=== PATIENT | female | born 1970 | race Caucasian/White ===

== ENCOUNTER 2017-01-15 12:26 | Observation (INO) | payer OTHER ==
[2017-01-15 14:28] LABS: APPEARANCE CLEAR (CLEAR); BILIRUBIN NEGATIVE (NEGATIVE); COLOR STRAW (YELLOW); GLUCOSE NEGATIVE (NEGATIVE); KETONE NEGATIVE (NEGATIVE); NITRITE NEGATIVE (NEGATIVE); PROTEIN NEGATIVE (NEGATIVE); SPECIFIC GRAVITY 1.005 (1.005-1.020); UROBILINOGEN NORMAL (NORMAL)
[2017-01-15 14:39] LABS: BASOPHILS 0.1 % (0-2); HEMATOCRIT 45.5 % (36.0-48.0); HEMOGLOBIN 15.9 g/dL (12-16); IMMATURE GRANULOCYTES 0.1 % (0-5); LYMPHOCYTES 37.2 % (15-50); MCH 31.4 pg (26.0-34.0); MCHC 34.9 g/dL (31.0-37.0); MCV 89.7 fL (80.0-100.0); MEAN PLATELET VOLUME 8.9 fL (7.4-10.4); MONOCYTES 7.3 % (2-11); NEUTROPHILS 52.3 % (40-80); PLATELET COUNT 249 10x3/uL (130-400); RBC 5.07 10x6/uL (4.00-5.40); RDW 13.4 % (11.5-14.5); WBC 9.7 10x3/uL (4.8-10.8)
[2017-01-15 14:53] LABS: ALBUMIN 3.7 g/dL (3.4-5.0); ALKALINE PHOSPHATASE 84 U/L (46-116); ALT (SGPT) 30 U/L (10-68); CALC OSMOLALITY 276 mosm/kg (275-300); CARBON DIOXIDE 27.8 mmol/L (21.0-32.0); CHLORIDE - SERUM 103 mmol/L (98-107); CREATININE - SERUM 0.7 mg/dL (0.6-1.3); GLUCOSE 74 mg/dL (74-106); POTASSIUM - SERUM 3.9 mmol/L (3.5-5.1); PROTEIN - SERUM 7.2 g/dL (6.4-8.2); SODIUM 140 mmol/L (136-145); UREA NITROGEN 10 mg/dL (7-18); eGFR NON AFRICAN AMERICAN > 90 mL/min (90-120)
[2017-01-15 16:01] LABS: CREATINE KINASE 50 UL (21-215)
[2017-01-15 16:02] LABS: TROPONIN-I < 0.017 ng/mL (0.000-0.060)
[2017-01-15 19:57] LABS: MAGNESIUM - SERUM 2.1 mg/dL (1.8-2.4); THYROID STIMULATING HORMONE 1.66 uIU/mL (0.36-3.74)
--- NOTE | 2017-01-15 22:46 | NUR ---
PT ARRIVED TO FLOOR BY WHEELCHAIR. THEN TAKEN TO MRI BY WHEELCHAIR.
--- NOTE | 2017-01-15 23:25 | NUR ---
PT ARRIVED BACK ON FLOOR BY WHEELCHAIR FROM MRI. BED IN LOW POSITION, CALL LIGHT WITHIN REACH.
[2017-01-16] VITALS (7 sets, daily range): BP systolic 96–129; BP diastolic 44–72; BMI 23.3
--- NOTE | 2017-01-16 01:11 | NUR ---
TELEMETRY PUT ON PT. CURRENTLY AT 72 BPM NSR. DENIES ANY PAIN OR NEEDS AT THIS TIME. BED IN LOW POSITION, CALL LIGHT WITHIN REACH.
--- NOTE | 2017-01-16 01:54 | NUR ---
PT UP AMBULATING AROUND THE UNIT. NO S/S DISTRESS. BREATHING EVEN AND UNLABORED. DENIES ANY WEAKNESS/DIZZINESS. WILL CTM.
--- NOTE | 2017-01-16 02:10 | NUR ---
PT RETURNED TO ROOM. IN BED RESTING QUEITLY. BED RAILS UP X2. DENIES ANY PAIN OR NEEDS AT THIS TIME. BED IN LOW POSITION, CALL LIGHT WITHIN REACH.
[2017-01-16 06:44] LABS: BASOPHILS 0.2 % (0-2); HEMATOCRIT 43.6 % (36.0-48.0); HEMOGLOBIN 15.3 g/dL (12-16); IMMATURE GRANULOCYTES 0.2 % (0-5); LYMPHOCYTES 40.5 % (15-50); MCH 31.3 pg (26.0-34.0); MCHC 35.1 g/dL (31.0-37.0); MCV 89.2 fL (80.0-100.0); MONOCYTES 8.4 % (2-11); NEUTROPHILS 46.7 % (40-80); PLATELET COUNT 239 10x3/uL (130-400); RBC 4.89 10x6/uL (4.00-5.40); RDW 13.3 % (11.5-14.5); WBC 8.7 10x3/uL (4.8-10.8)
--- NOTE | 2017-01-16 07:00 | NUR ---
REPORT RECEIVED FROM OFF GOING NURSE. SEE ASSESSMENT PER FLOW SHEET. PT DENIES PAIN VERBALLY. DENIES SOB, DIZZINESS, AND [place] AT THIS TIME. ABLE TO AMBULATE. SHE DOES MENTION THAT SHE IS A [place] IN [place]. "IV BEEN SICK BEFORE BUT IT NEVER STOPS ME FROM MY DAY TO DAY LIFE, HOWEVER WHATEVER IS GOING ON WITH ME NOW IS STOPPING ME". VSS. BREATHING NORMAL AND UNLABORD. 0 S/SX OF DISTRESS/DISCOMFORT. CALL LIGHT IN REACH. WILL CONT POC
[2017-01-16 07:20] LABS: CALC OSMOLALITY 276 mosm/kg (275-300); CALCIUM 8.6 mg/dL (8.5-10.1); CARBON DIOXIDE 27.7 mmol/L (21.0-32.0); CHLORIDE - SERUM 104 mmol/L (98-107); CKMB 0.3 U/L (0.0-3.6); CREATINE KINASE 47 UL (21-215); CREATININE - SERUM 0.7 mg/dL (0.6-1.3); GLUCOSE 92 mg/dL (74-106); POTASSIUM - SERUM 4.2 mmol/L (3.5-5.1); SODIUM 139 mmol/L (136-145); UREA NITROGEN 10 mg/dL (7-18); eGFR NON AFRICAN AMERICAN > 90 mL/min (90-120)
[2017-01-16 07:28] LABS: TROPONIN-I < 0.017 ng/mL (0.000-0.060)
--- NOTE | 2017-01-16 09:00 | NUR ---
PT AMBULATED TO NURSING STATION WITH A NORMAL STEADY GAIT. STATED THAT SHE WAS GOING DOWN STAIRS FOR A FEW MINUTES. ADVISED PT NOT TO SMOKE CIGARETTES AND SHE STATED "I KNOW, I KNOW".
--- NOTE | 2017-01-16 09:15 | NUR ---
PT BACK IN ROOM. NO S/SX OF DISTRESS/DISCOMFORT NOTED. BREATHING NORMAL AND UNLABORED. CALL LIGHT IN REACH. WILL CONT POC
--- NOTE | 2017-01-16 12:00 | NUR ---
PT IN ROOM WATCHING TV WITH NO S/SX OF DISTRESS/DISCOMFORT NOTED. ASKED IF SHE COULD GO DOWN STAIRS AND SMOKE A CIGARETTE. REMINDED PT THAT IT IS ADVICED NOT TO LEAVE THE FLOOR IF SHE HAS BEEN EXPEIRENCING DIZZINESS AND LIGHT HEADEDNESS FOR SAFTEY REASONS. WILL CONTACT MD FOR NICOTINE NEEDS.
--- NOTE | 2017-01-16 13:06 | NUR ---
NEW ORDERS FOR CAROTID DOPPLER WITH AND WITHOUT CONTRAST. 20 GAUGE IV STARTED IN RIGHT WRIST. NO S/SX OF INFILTRATION. DRESSING C/D/I. WILL CONT POC
[2017-01-16 13:27] LABS: CHOL - HDL RATIO 6.7 ratio (2.3-4.1); LDL-HDL RATIO 4.3 ratio (1.5-3.5)
[2017-01-16 13:53] LABS: CKMB 0.2 U/L (0.0-3.6); CREATINE KINASE 48 UL (21-215); TROPONIN-I < 0.017 ng/mL (0.000-0.060)
--- NOTE | 2017-01-16 15:50 | NUR ---
PT IN ROOM WATCHING TV WITH 0 S/SX OF DISTRESS/DISCOMFORT NOTED. BREATHING NORAMAL AND UNLABORED. CALL LIGHT IN REACH. WILL CONT POC.
--- NOTE | 2017-01-16 16:53 | NUR ---
CALLED DR BRODERICK OFFICE REGARDING NEURO CONSULT.
[2017-01-16 19:40] LABS: CKMB 0.5 U/L (0.0-3.6); CREATINE KINASE 52 UL (21-215)
[2017-01-16 19:46] LABS: TROPONIN-I < 0.017 ng/mL (0.000-0.060)
--- NOTE | 2017-01-16 20:00 | NUR ---
PT IN BED RESTING QUEITLY. AT BEDSIDE. DENIES ANY PAIN OR NEEDS AT THIS TIME. STATES SHE HAS NOT HAD ANY DIZZY SPELLS TODAY. TOLD PT IF SHE DOES TO CALL ME, SHE VERBALIZED UNDERSTANDING. BED RAILS UP X2. BED IN LOW POSITION, CALL LIGHT WITHIN REACH.
--- NOTE | 2017-01-16 21:44 | NUR ---
PT UP WALKING AROUND UNIT. CAME TO ME AND STATED SHE WAS STARTING TO FEEL DIZZY. IMMEDIATELY WENT INTO PTS ROOM, SAT HER DOWN ON THE BED AND TOOK HER VITALS. BP 121/71 SITTING ON R ARM. OXYGEN LEVEL 98% ON ROOM AIR. BREATHING EVEN AND UNLABORED. NO VISUAL SIGNS OF ANY DISTRESS. AFTER A FEW MINUTES OF SITTING ON THE BED SHE STATED SHE WAS FEELING BETTER. WILL CTM. BED IN LOW POSITION, CALL LIGHT WITHIN REACH.
--- NOTE | 2017-01-16 22:07 | NUR ---
PT STATED THAT SHE IS HAVING CONSTIPATION AND HAS NOT HAD A BOWEL MOVEMENT IN 3 DAYS. STATED THAT THIS DOES HAPPEN TO HER REGULARLY AT HOME. OFFERED PT PRUNE JUICE. WILL CTM. DENIES ANY OTHER NEEDS AT THIS TIME.
[2017-01-17] VITALS: BP 109/61
--- NOTE | 2017-01-17 00:06 | NUR ---
PT STATES CONSTIPATED STILL. PAGED [facility] APN. PT STATES SHE TAKES LINZESS AT HOME BUT IT IS NOT WORKING. RCVD ORDERS FROM [facility] VANCE TO DO DULCOLAX 20 MG SUPPOSITORY. ONE NOW AND OANOTHER IN FOUR HOURS IF NO RESULTS. TOLD THE PT THIS AND SHE STATED SHE DID NOT WANT A SUPPOSITORY AND WOULD RATHER TRY MORE PRUNE JUICE AT THIS TIME. WILL CTM. BED IN LOW POSITION, CALL LIGHT WITHIN REACH.
--- NOTE | 2017-01-17 01:53 | NUR ---
PT UP AMBULATING ON THE FLOOR. DENIES ANY DIZZINESS. NO S/S DISTRESS. WILL CTM.
[2017-01-17 02:41] LABS: CKMB 0.3 U/L (0.0-3.6); CREATINE KINASE 55 UL (21-215); TROPONIN-I < 0.017 ng/mL (0.000-0.060)
[2017-01-17 04:00] VITALS: BP 85/51
--- NOTE | 2017-01-17 05:11 | NUR ---
PT BP 85/51. NO S/S DISTRESS. PT STATES THAT THIS HAPPENS OFTEN AND SHE HAS CHRONIC LOW BP. DENIES ANY PAIN OR NEEDS AT THIS TIME. WILL CTM. BED IN LOW POSITION, CALL LIGHT WITHIN REACH.
--- NOTE | 2017-01-17 05:55 | NUR ---
PT IN BED RESTING QUEITLY. DENIES ANY PAIN OR NEEDS AT THIS TIME. BED RAIS UP X2. BED IN LOW POSITION, CALL LIGHT WITHIN REACH.
--- NOTE | 2017-01-17 07:25 | NUR ---
PT IN BED AND APPEARS TO BE SLEEPING AT THIS TIME WITH EQUAL AND NON LABORED BREATHING. MONITOR SHOWING SR, HR 92. IV TO RIGHT ARM, SL. PT IS UP AD CARTER. BED AT LOWEST POSITION. CALL NESS IN USE/REACH. SIDE RAILS UP X2. WILL CONTINUE OT MONITOR
[2017-01-17 08:00] VITALS: BP 98/56
--- NOTE | 2017-01-17 10:32 | NUR ---
SCD'S ON BILATERAL LE
[2017-01-17 12:00] VITALS: BP 96/62
[2017-01-17] MEDS ORDERED: STERAPRED 5MG 125 MG PO (14:58)
[2017-01-17] MEDS ORDERED: AMOXICILLIN875 MG PO (14:59)
--- NOTE | 2017-01-17 16:03 | NUR ---
WENT OVER DC PAPERWORK WITH PT PT VERBALIZES UNDERSTANDING. DC PIV IN BILAT ARMS BOTH WITH CATH TIPS INTACT. PT WAS WHEELED OUT.
--- NOTE | 2017-01-17 16:03 | NUR ---
D/C - IV D/C, CATH TIP INTACT, 2X2 DRESSING APPLIED AND SECURED WITH TAPE. PT TOLERATED WELL. PT LEFT FLOOR VIA AMBULATION. PT REFUSES A WHEELCHAIR. WILL D/C
--- NOTE | 2017-01-17 16:04 | NUR ---
DC TELE AND RETURNED TO ACCOUNT SERVICES ASSOCIATE
--- NOTE | 2017-02-01 16:56 | EC ---
PATIENT:ESTHELA HENDERSON DATE OF SERVICE: 01/15/17 SEX: F MEDICAL RECORD: [id number] DATE OF : [birth year] LOCATION:D.M2 D.210 AGE OF PATIENT: 46 ADMISSION DATE: 01/15/17 REFERRING PHYSICIAN: INTERPRETING PHYSICIAN: KIMBERLEE MENDOZA MD ECHOCARDIOGRAM REPORT ECHO CHARGES 4 ECHO COMPLETE CLINICAL DIAGNOSIS: DIZZINESS ECHOCARDIOGRAPHIC MEASUREMENTS (adult normal given) AC root (d.<3.7cm) 3.0 cm LV Septum d (<1.2 cm> 1.1 cm Valve Excursion 1.9 cm LV Septum (systole) 1.4 cm Left Atria (s.<4.0cm> 2.4 cm LVPW d(<1.2cm) 0.9 cm RV (d.<2.3cm) 2.5 cm LVPW (sytole) 1.4 cm LV diastole(<5.6CM) 4.4 cm MV E-F(>70mm/sec) cm LV systole 2.4 cm LVOT Diameter 1.7 cm MV exc.(>10mm) cm Est.ejection fraction (50-75%) % Pericardial Effusion N DOPPLER: LVIT cm/sec A 48.0 cm/sec E 71.0 cm/sec LA cm/sec RVSP 21.0 mmHg LVOT 103 cm/sec AOP1/2T m/s Asc. Ao 109 cm/sec RVOT 50.0 cm/sec RA cm/sec PA 65.0 cm/sec AV Gradient Peak 4.8 mmHg AV Mean 2.6 mmHg AV Area 1.7 cm MV Gradient Peak 2.3 mmHg MV Mean 0.93 mmHg MV Area cm COMMENTS: Pluck Separator: Sandy FARRELLOE [employer] Paralegal: 1 Dr. Mendoza TAPE# PACS DATE OF SERVICE: 01/16/2017 FINDINGS: 1. Left ventricular chamber size is within normal limits. Left ventricular systolic function is normal. Overall ejection fraction estimated at 55%. 2. Left atrium, right atrium, and right ventricular chamber sizes are within normal limits. 3. Valvular structures have normal structure and motion. 4. Doppler interrogation only reveals trace tricuspid regurgitation, no other valvular insufficiency or stenosis. ECHOCARDIOGRAM REPORT [id number] ESTHELA HENDERSON 5. No evidence of pericardial effusion or left ventricular thrombus. TRANSINT:[id number] Voice Confirmation ID: [id number] DOCUMENT ID: [id number] 01/28/2017 Edited to correct date of service, dmm. KIMBERLEE MENDOZA MD at 1656 CC: [id number] DICTATION DATE: 01/17/17 1244 GLOBAL SALES MANAGER: 01/17/17 1259 DIS IN 01/17/17 [place] [id number] [place] [id number]
== END 2017-01-17 16:08 | disposition home or self-care (01) ==
LOC: D.ER 12:26 → D.SDCHOLD 21:31 → D.M2 21:31 → D.ER 21:31 → OBSVTIME 21:31 → D.M2 01-17 16:08
PROVIDERS: Family Medicine; Nurse Practitioner Family; ADMIT Family Medicine
DX: H81.90 Unspecified disorder of vestibular function, unspecified ear (principal); F17.203 Nicotine dependence unspecified, with withdrawal; K21.9 Gastro-esophageal reflux disease without esophagitis; M19.90 Unspecified osteoarthritis, unspecified site; K59.09 Other constipation

== ENCOUNTER 2020-09-09 21:05 | Emergency (ER) | payer OTHER ==
[~2020-09-09] VITALS: Ht 152.4 cm; Wt 59.1 kg
[~2020-09-09 21:05] MED LIST: AMOXICILLIN875 MG PO; STERAPRED 5MG 125 MG PO
[2020-09-09 21:14] VITALS: Ht 152.4 cm; Wt 59.1 kg
[2020-09-09] MEDS ORDERED: LUNESTA1 MG PO (21:18)
[2020-09-09 21:33] LABS: BASOPHILS 1.4 % (0-2); EOSINOPHILS 1.1 % (0-7); HEMATOCRIT 41.8 % (36.0-48.0); LYMPHOCYTES 25.7 % (15-50); MCH 29.2 pg (26.0-34.0); MCHC 33.5 g/dL (31.0-37.0); MCV 87.3 fL (80.0-100.0); MEAN PLATELET VOLUME 6.7 fL (7.4-10.4); NEUTROPHILS 64.8 % (40-80); RBC 4.79 10x6/uL (4.00-5.40); RDW 14.9 % (11.5-14.5); WBC 15.9 10x3/uL (4.8-10.8)
[2020-09-09 21:36] LABS: CALC OSMOLALITY 271 mosm/kg (275-300); CALCIUM 8.3 mg/dL (8.5-10.1); CHLORIDE - SERUM 99 mmol/L (98-107); CREATININE - SERUM 0.9 mg/dL (0.6-1.3); POTASSIUM - SERUM 3.3 mmol/L (3.5-5.1); SODIUM 135 mmol/L (136-145); UREA NITROGEN 10 mg/dL (7-18); eGFR NON AFRICAN AMERICAN 70 mL/min (90-120)
[2020-09-09 21:40] LABS: GLUCOSE 145 mg/dL (74-106); PLATELET COUNT 366 10x3/uL (130-400)
[2020-09-09 21:51] LABS: ALBUMIN 3.6 g/dL (3.4-5.0); ALKALINE PHOSPHATASE 98 U/L (30-120); ALT (SGPT) 25 U/L (10-68); BILIRUBIN - TOTAL 0.18 mg/dL (0.2-1.3); CKMB 0.9 U/L (0.0-3.6); CREATINE KINASE 82 UL (21-215); MAGNESIUM - SERUM 1.7 mg/dL (1.8-2.4); PROTEIN - SERUM 6.9 g/dL (6.4-8.2)
[2020-09-09 21:52] LABS: TROPONIN-I < 0.017 ng/mL (0.000-0.060)
[2020-09-09 23:00] LABS: APTT 32.7 SECONDS (22.8-39.4); INR 1.12 (0.85-1.17); PROTIME 13.3 SECONDS (11.6-15.0)
[2020-09-09 23:12] LABS: BILIRUBIN NEGATIVE (NEGATIVE); KETONE NEGATIVE (NEGATIVE); NITRITE NEGATIVE (NEGATIVE); UROBILINOGEN NORMAL mg/dL (< 2)
[2020-09-09] MEDS ORDERED: AUGMENTIN 875-11 TAB PO (23:25)
[2020-09-10 00:24] VITALS: BP 119/59
== END 2020-09-10 00:24 | disposition home or self-care (01) ==
LOC: D.ER 21:05
PROVIDERS: Family Medicine
DX: J18.9 Pneumonia, unspecified organism (principal); R51.9 Headache, unspecified; R07.89 Other chest pain; E87.6 Hypokalemia; D72.829 Elevated white blood cell count, unspecified; R73.9 Hyperglycemia, unspecified; Z72.0 Tobacco use